=== PATIENT | male | born 1995 | race Two or more races ===

== ENCOUNTER → 2024-12-15 | Outpatient (CLI) | payer BC, SELFPAY ==
--- NOTE | 2024-12-15 | XR_ITS ---
Examination: Bilateral AP knees single view Standing right lateral knee left lateral knee 2 views TECHNIQUE: Bilateral AP knees standing single view Standing right lateral knee left laterally 2 view skull 3 views Date and time: December 15, 2024, 0742 hours INDICATIONS: Bilateral knee pain 3 years. FINDINGS: Mild tricompartment joint narrowing No fracture or dislocation involving either knee No cortical bone destruction IMPRESSION: Mild tricompartment joint narrowing bilaterally
== END | disposition home or self-care (01) ==
LOC: CDIM 07:27
PROVIDERS: Referring Provider Orthopaedic Surgery; Visit Provider Orthopaedic Surgery
DX: M25.862 Other specified joint disorders, left knee (principal); M25.861 Other specified joint disorders, right knee
CPT/HCPCS: 73560